=== PATIENT | male | born 1965 | race Hispanic/Latino ===

== ENCOUNTER → 2021-01-03 14:15 | Outpatient (CLI) | payer OTHER, SELFPAY ==
[2021-01-03] MEDS: COVID-19 VACC #1, MRNA(MOD) 100 MCG/0.5 ML VIAL IM (14:23)
== END ==
PROVIDERS: PCP Family Medicine; Visit Provider Internal Medicine
DX: Z23 Encounter for immunization (principal)
CPT/HCPCS: 0011A; 91301

== ENCOUNTER → 2021-01-31 14:10 | Outpatient (CLI) | payer OTHER, SELFPAY ==
[2021-01-31] MEDS: COVID-19 VACC #2, MRNA(MOD) 100 MCG/0.5 ML VIAL IM (14:17)
== END ==
PROVIDERS: PCP Family Medicine; Visit Provider Internal Medicine
DX: Z23 Encounter for immunization (principal)
CPT/HCPCS: 0012A; 91301